=== PATIENT | male | born 1950 | race Caucasian/White ===

== ENCOUNTER → 2023-06-26 12:00 | Outpatient (REF) | payer OTHER, SELFPAY | LOC: DHSLP 12:00 | PROVIDERS: ATTENDING PHYSICIAN Internal Medicine Critical Care Medicine; FAMILY PHYSICIAN Family Medicine | DX: G47.33 Obstructive sleep apnea (adult) (pediatric) (principal); R09.02 Hypoxemia | CPT/HCPCS: 95800 ==

== ENCOUNTER → 2023-07-30 15:38 | Outpatient (REF) | payer OTHER, SELFPAY | LOC: RCS 15:38 | PROVIDERS: ATTENDING PHYSICIAN Internal Medicine Cardiovascular Disease; FAMILY PHYSICIAN Family Medicine | DX: Z95.1 Presence of aortocoronary bypass graft (principal); I25.5 Ischemic cardiomyopathy | CPT/HCPCS: 93306 ==